=== PATIENT | female | born 1995 | race Caucasian/White ===

== ENCOUNTER 2023-01-19 07:42 | Observation (INO) ==
[2023-01-19] MEDS ORDERED: ONDANSETRON (PP) 4 MG TABLET SL ONE (08:05)
[2023-01-19] MEDS ORDERED: ACETAMINOPHEN 325 MG TABLET PO ONE (08:05)
[2023-01-19] MEDS ORDERED: FAMOTIDINE 20 MG TABLET PO ONE (08:05)
[2023-01-19] MEDS ORDERED: ONDANSETRON 4 MG ODT TABLET ONE (08:09)
[2023-01-19] MEDS ORDERED: ONDANSETRON 4 MG ODT TABLET SL ONE (08:13)
[2023-01-19 08:49] LABS: Basophils # (Auto) 0.05 K/mcL (0.00-0.30); Basophils % (Auto) 0.5 % (0.0-2.0); Eosinophils # (Auto) 0.12 K/mcL (0.00-0.70); Eosinophils % (Auto) 1.3 % (0.0-7.0); Hemoglobin 14.2 g/dL (11.2-15.7); Lymphocytes # (Auto) 2.66 K/mcL (1.50-4.80); Lymphocytes % (Auto) 28.1 % (15.5-49.0); Mean Cell Volume 89.6 fL (80.0-100.0); Mean Corpuscular HGB Conc 33.8 g/dL (31.0-36.0); Mean Platelet Volume 10.7 fL (8.8-12.5); Monocytes # (Auto) 0.63 K/mcL (0.10-0.90); Monocytes % (Auto) 6.7 % (1.0-12.0); Neutrophils % (Auto) 63.1 % (38.0-78.0); Platelet Count 258 K/mcL (140-440); RBC 4.69 M/mcL (3.59-5.38); Red Cell Distribution Width 12.5 % (11.5-14.5); WBC 9.5 K/mcL (4.5-11.0)
--- NOTE | 2023-01-19 09:02 | Emergency Department Note ---
HPI General Chief complaint: Flank Pain Stated complaint: Sharp [place] Pain Time Seen by Provider: 01/19/23 08:05 Source: patient Mode of arrival: ambulatory Limitations: no limitations History of Present Illness HPI Narrative: Narrative: 27-year-old female presents with right flank pain. States that it came on last night. Does radiate from her right upper quadrant to her right flank. With nausea no vomiting. Did not eat today. though states had blood greasy food last night. States normally loose stools and mild gross blood. No fevers chills. No urinary symptoms of dysuria urgency frequency hematuria. No fevers or chills. Does have a history of hypertension on propanolol. Non- smoker nondrinker no illicit IV drugs. No abdominal surgical history Related Data Home Medications Medication Instructions Recorded Confirmed etonogestrel 68 mg subdermal 1 implant subdermal ONCE 09/30/19 05/31/22 implant (Nexplanon) Previous Rx's Medication Instructions Recorded hydroxyzine HCl 25 mg tablet See Rx Instructions .Route 07/31/22 .COMPLEX #60 tabs pantoprazole 20 mg tablet,delayed 20 mg PO QDAY #90 tabs 10/02/22 release propranolol 60 mg capsule,24 60 mg PO QDAY #30 caps 11/27/22 hr,extended release Allergies Allergy/AdvReac Type Severity Reaction Status Date / Time No Known Drug Allergies Allergy Verified 05/31/22 14:58 Review of Systems ROS ROS Narrative: Narrative: 10 point review of system is otherwise negative except as mentioned in HPI. PFSH Narrative Patient History Narrative: Narrative: Medical/Surgical/Family History All Active Problems (Updated 01/19/23 @ 12:41 by Lorelei Love MD) Acute cholecystitis (Acute) Heartburn (Acute) Abdominal pain (Acute) Nausea (Acute) Viral URI with cough (Acute) Lightheadedness (Acute) Encounter for counseling regarding contraception (Chronic) Encounter for therapeutic drug monitoring (Chronic) Attention-deficit hyperactivity disorder, predominantly inattentive type (Chronic) ADHD (Chronic) Depression (Chronic) Nexplanon in place (Chronic ~06/25/14) Menstrual problem (Chronic) Suicide attempt (Chronic ~11/2012) Heart palpitations (Chronic) Anxiety (Chronic) Near syncope (Acute) Benign intracranial hypertension (Acute) Left flank pain (Acute) Steatosis of liver (Acute) Grief reaction (Acute) Generalized anxiety disorder with panic attacks (Acute) Encounter for removal and reinsertion of Nexplanon (Acute) Pseudotumor (Acute) Cellulitis (Acute) Autonomic dysfunction (Acute) Dizziness (Acute) Medical History ADHD Attention-deficit hyperactivity disorder, predominantly inattentive type Depression Encounter for counseling regarding contraception Encounter for therapeutic drug monitoring Menstrual problem Nexplanon in place (~06/25/14) Pseudotumor Steatosis of liver Suicide attempt (~11/2012) Surgical History No pertinent past surgical history Family History Mother No problems noted. Father High blood pressure Grandmother Thyroid disorder Grandfather Glaucoma Diabetes mellitus Brother No problems noted. Social History Smoking Status: Never smoker Alcohol Intake Frequency: a few times a week Substance Use: does not use Exam Narrative Narrative: Narrative: (Please note that portions of this note may have been completed with a voice recognition program. Efforts were made to edit the dictations but occasionally words are mis-transcribed) CONSTITUTIONAL: Well-nourished well-hydrated adult female obese 118 kg. Mother and father at bedside. Resting comfortably. Not in acute distress. Non toxic. Awake alert and oriented x3. Cooperative, follows commands. HEAD: Normocephalic. Atraumatic. EYES: EOMI ENT: No drooling stridor. speech clear fluent. NECK: Supple. Full range of motion. Trachea midline CARDIOVASCULAR: Adequate peripheral perfusion. PULMONARY: Nonlabored. . ABDOMINAL: Soft. Nondistended. Right upper quadrant tenderness. No rebound guarding or rigidity. No CVA tenderness positive bowel sounds. EXTREMITIES: No gross deformities. Moves all 4 extremities with good strength and tone. SKIN: Warm and dry. No rash. No petechiae. NEUROLOGY: Sensation is intact. No gross focal deficits. GCS of 15 General Limitations: no limitations Course Vital Signs Vital signs: Vital Signs Temperature 36.6 C 01/19/23 07:44 Pulse Rate 89 01/19/23 07:44 Respiratory Rate 17 01/19/23 07:44 Blood Pressure 137/101 01/19/23 07:44 Pulse Oximetry (%) 98 01/19/23 07:44 Oxygen Delivery Method Room Air 01/19/23 07:44 Temperature 36.6 C 01/19/23 07:44 Pulse Rate 62 01/19/23 12:31 Respiratory Rate 17 01/19/23 07:44 Blood Pressure 95/55 01/19/23 12:31 Pulse Oximetry (%) 98 01/19/23 12:31 Oxygen Delivery Method Room Air 01/19/23 07:44 MDM MDM Narrative Medical decision making narrative: Narrative: ddx gastritis ulcer cholelithiasis cholecystitis choledocholithiasis fatty liver stone obstructive septic UTI gas constipation etc. U preg negative. Udip LE, no blood. labs formal UA and RUQ US ordered. Zofran odt, pepcid and tylenol po ordered. Labs unremarkable. Normal LFTs bilirubin. Normal white count. Formal urine analysis was sent does show leukocyte esterase WBCs with bacteria with squamous cells concerning for contamination. Culture will be sent. Ultrasound per radiology call back does show acute cholecystitis. Patient was updated on results clinical impressions treatment plan. Questions have been answered at length. Agreeable to admission. NPO. IV Lavernen and Flagyl. Dr. Jara with spoken to. Will admit the patient. Lab Data 01/19/23 08:16 01/19/23 08:15 Labs: Lab Results 01/19/23 01/19/23 01/19/23 Range/Units 07:55 08:15 08:16 WBC 9.5 (4.5-11.0) K/mcL RBC 4.69 (3.59-5.38) M/mcL Hgb 14.2 (11.2-15.7) g/dL Hct 42.0 (34.1-44.9) % MCV 89.6 (80.0-100.0) fL MCH 30.3 (26.0-34.0) pg MCHC 33.8 (31.0-36.0) g/dL RDW 12.5 (11.5-14.5) % Plt Count 258 (140-440) K/mcL MPV 10.7 (8.8-12.5) fL Immature Gran % (Auto) 0.3 (0.0-0.5) % Neut % (Auto) 63.1 (38.0-78.0) % Lymph % (Auto) 28.1 (15.5-49.0) % Dane % (Auto) 6.7 (1.0-12.0) % Eos % (Auto) 1.3 (0.0-7.0) % Baso % (Auto) 0.5 (0.0-2.0) % Lymph # (Auto) 2.66 (1.50-4.80) K/mcL Dane # (Auto) 0.63 (0.10-0.90) K/mcL Eos # (Auto) 0.12 (0.00-0.70) K/mcL Baso # (Auto) 0.05 (0.00-0.30) K/mcL Immature Gran # 0.03 (0.00-0.05) K/mcl Absolute Neutrophils 5.98 (1.80-8.00) K/mcL Sodium 139 (133-145) mmol/L Potassium 4.2 (3.3-5.1) mmol/L Chloride 107 (96-108) mmol/L Carbon Dioxide 23 (22-30) mmol/L Anion Gap 9.0 (8.0-16.0) BUN 11 (6-20) mg/dL Creatinine 0.8 (0.6-1.1) mg/dL GFR Calculation 99 Glucose 103 (70-105) mg/dL Calcium 9.1 (8.6-10.4) mg/dL Total Bilirubin 0.2 (0.1-1.0) mg/dL AST 16 (<32) U/L ALT 21 (<40) U/L Alkaline Phosphatase 68 (39-117) U/L Total Protein 6.6 (5.9-8.4) gm/dL Albumin 3.8 (3.2-5.2) gm/dL Globulin 2.8 (2.2-3.7) gm/dL Albumin/Globulin Ratio 1.4 (1.0-2.3) Urine Color Yellow Urine Appearance Hazy A (Clear) Urine pH 5.0 (5.0-9.0) Ur Specific Oakes 1.021 (1.000-1.035) Urine Protein Negative (Negative) mg/dL Urine Glucose (UA) Negative (Negative) mg/dL Urine Ketones Negative (Negative) mg/dL Urine Occult Blood Negative (Negative) mg/dL Urine Nitrate Negative (Negative) Urine Bilirubin Negative (Negative) mg/dL Urine Urobilinogen Negative mg/dL Ur Leukocyte Esterase 75 A (Negative) /uL Urine RBC 1 (0-3) /hpf Urine WBC 5 H (0-4) /hpf Ur Squamous Epith Cells 2 (0-4) /hpf Calcium Oxalate Crystal Many A (None) /hpf Urine Bacteria Few A (0) /hpf Urine Mucus Few A (None) /hpf Ur Culture Indicated? Yes Discharge Plan Patient/Caregiver Discharge Instructions Pt seen by SUPERVISOR [employer]WORK/PA only: No Clinical Impression: Acute cholecystitis Patient Disposition: Xfer As Inpt ([facility]) Condition: Fair Follow up with: Doreen Mckeon ARNP [Primary Care Provider] - Prescriptions: No Action Nexplanon 68 mg implant 1 implant SUBDERMAL ONCE hydroxyzine HCl 25 mg tablet See Rx Instructions .ROUTE .COMPLEX Qty: 60 2RF Dose Instruction: TAKE 1 TO 2 TABLETS BY MOUTH EVERY 4 TO 6 HOURS NEEDED FOR ANXIETY Rx Instructions: TAKE 1 TO 2 TABLETS BY MOUTH EVERY 4 TO 6 HOURS NEEDED FOR ANXIETY pantoprazole 20 mg tablet,delayed release (DR/EC) 20 mg PO QDAY Qty: 90 1RF propranolol 60 mg capsule,extended release 24 hr 60 mg PO QDAY Qty: 30 3RF
[2023-01-19 09:08] LABS: ALT/SGPT 21 U/L (<40); AST/SGOT 16 U/L (<32); Albumin 3.8 gm/dL (3.2-5.2); Albumin/Globulin Ratio 1.4 (1.0-2.3); Alkaline Phosphatase 68 U/L (39-117); Bilirubin,Total 0.2 mg/dL (0.1-1.0); Blood Urea Nitrogen 11 mg/dL (6-20); Calcium 9.1 mg/dL (8.6-10.4); Carbon Dioxide 23 mmol/L (22-30); Chloride 107 mmol/L (96-108); Globulin 2.8 gm/dL (2.2-3.7); Glomerular Filtration Rate 99; Glucose 103 mg/dL (70-105)
[2023-01-19 09:49] LABS: Appearance,Urine HAZY (Clear); Bacteria,Urine FEW /hpf (0); Bilirubin,Urine Negative (Negative); Calcium Oxalate Crystals,Urine MANY /hpf; Color,Urine YELLOW; Culture Indicated,Urine Yes; Glucose,Urine (UA) Negative (Negative); Ketones,Urine Negative (Negative); Leukocyte Esterase,Urine 75 /uL (Negative); Mucus,Urine FEW /hpf; Nitrate,Urine Negative (Negative); Protein,Urine Negative (Negative); Specific Gravity,Urine 1.021 (1.000-1.035); Urine Blood Negative (Negative); Urine RBC 1 /hpf (0-3); Urine Squamous Epithelial Cell 2 /hpf (0-4); Urine WBC 5 /hpf (0-4); Urobilinogen,Urine Negative
[2023-01-19] MEDS ORDERED: cefTRIAXone 2 GM in DEXTROSE 5% IN WATER 50 ML IV ONE (10:34)
[2023-01-19] MEDS ORDERED: metroNIDAZOLE 500 MG/100 ML BAG IV ONE (10:34)
[2023-01-19] MEDS ORDERED: FAMOTIDINE/PF 20 MG/2 ML VIAL IV ONE (11:00)
[2023-01-19] MEDS ORDERED: diphenhydrAMINE 50 MG/ML VIAL IV ONE (11:00)
[2023-01-19] MEDS ORDERED: PROMETHAZINE 25 MG/ML VIAL IV PRN (13:25)
[2023-01-19] MEDS ORDERED: fentaNYL 100 MCG/2 ML VIAL IV PRN (13:25)
[2023-01-19] MEDS ORDERED: oxyCODONE IR 5 MG TABLET PO PRN (13:25)
[2023-01-19] MEDS ORDERED: LORazepam 1 MG TABLET PO PRN (13:25)
--- NOTE | 2023-01-19 13:36 | General Surg History&Physical ---
HPI History of Present Illness Patient information: Note initiated : 01/19/23 at 1:31 pm Service Date, if different from initiated Date: [] Patient: Donna Garcia 27 y/o F admitted on . Chief Complaint: [] Chief complaint: Cholelithiasis with cholecystitis History of present illness: Ms. Garcia is a 27 year old F admitted with gallbladder disease. She has greater than a 2-year history of intermittent epigastric and right upper quadrant pain and nausea. Last evening she had severe pain that started about midnight. She had nausea but no vomiting. Pain radiated through to her back. She finally came to the emergency room where evaluation reveals multiple gallstones with thickened gallbladder. She has acute cholecystitis and is admitted. She will be treated with antibiotics and will have surgery tomorrow. Review of Systems All systems: reviewed and no additional remarkable complaints except as stated Gastrointestinal Gastrointestinal: Present abdominal pain, cramping, dyspepsia and nausea Psychiatric Psychiatric: Present anxiety PFSH PFSH All Active Problems (Updated 01/19/23 @ 13:35 by Bertram Jara MD) Cholelithiasis with cholecystitis (Acute) Acute cholecystitis (Acute) Heartburn (Acute) Abdominal pain (Acute) Nausea (Acute) Viral URI with cough (Acute) Lightheadedness (Acute) Encounter for counseling regarding contraception (Chronic) Encounter for therapeutic drug monitoring (Chronic) Attention-deficit hyperactivity disorder, predominantly inattentive type (Chronic) ADHD (Chronic) Depression (Chronic) Nexplanon in place (Chronic ~06/25/14) Menstrual problem (Chronic) Suicide attempt (Chronic ~11/2012) Heart palpitations (Chronic) Anxiety (Chronic) Near syncope (Acute) Benign intracranial hypertension (Acute) Left flank pain (Acute) Steatosis of liver (Acute) Grief reaction (Acute) Generalized anxiety disorder with panic attacks (Acute) Encounter for removal and reinsertion of Nexplanon (Acute) Pseudotumor (Acute) Cellulitis (Acute) Autonomic dysfunction (Acute) Dizziness (Acute) Medical History ADHD Attention-deficit hyperactivity disorder, predominantly inattentive type Depression Encounter for counseling regarding contraception Encounter for therapeutic drug monitoring Menstrual problem Nexplanon in place (~06/25/14) Pseudotumor Steatosis of liver Suicide attempt (~11/2012) Surgical History No pertinent past surgical history Family History Mother No problems noted. Father High blood pressure Grandmother Thyroid disorder Grandfather Glaucoma Diabetes mellitus Brother No problems noted. Social History household members: alone housing: house marital status: education level: college occupational status: employed occupation: [id number] pets and animals: Yes pets and animals: dog(s) other: No Children smoking status: Never smoker alcohol intake frequency: a few times a week substance use type: does not use additional history: Pt's by suicide on 2019 MEDS/ALLERGIES Home Medications and Allergies Home Medications Medication Instructions Recorded Confirmed Type etonogestrel 68 mg subdermal 1 implant subdermal ONCE 09/30/19 05/31/22 History implant (Nexplanon) hydroxyzine HCl 25 mg tablet See Rx Instructions .Route 07/31/22 Rx .COMPLEX #60 tabs pantoprazole 20 mg tablet,delayed 20 mg PO QDAY #90 tabs 10/02/22 Rx release propranolol 60 mg capsule,24 60 mg PO QDAY #30 caps 11/27/22 Rx hr,extended release Allergies Allergy/AdvReac Type Severity Reaction Status Date / Time No Known Drug Allergies Allergy Verified 05/31/22 14:58 Physical Examination Vital Signs Vital signs: Temp Pulse Resp BP Pulse Ox O2 Del Method 97.9 F 70 17 109/68 99 Room Air 01/19/23 07:44 01/19/23 13:00 01/19/23 07:44 01/19/23 13:00 01/19/23 13:00 01/19/23 07:44 General physical appearance General physical exam: well developed, well nourished and no distress Eyes Eye exam: PERRL and normal ocular movement ENT ENT exam: normal pinna, normal nares, normal mucosa, no hearing loss and no congestion Head Head exam IM: Present atraumatic and normocephalic Neck Neck exam: no masses, no bruits, trachea midline, no lymphadenopathy and no venous distension Cardiovascular Cardiovascular exam IM: Present normal rate and rhythm Respiratory Respiratory exam: normal expansion, normal respiratory effort, clear to percussion and clear to auscultation Abdomen Abdomen: Present soft, tender (Right upper quadrant tenderness with guarding) and bowel sounds Hernia: Present none Genitourinary Genitourinary (Female): Present normal external genitalia Rectum Rectum: Present normal sphincter tone, no hemorrhoids, no tenderness, no masses and no bleeding Integumentary Integumentary: Present no rash, no growths and no abnormal pigmentation Neurologic Neurologic: Present normal coordination and normal sensation Musculoskeletal Musculoskeletal: Present normal gait and normal posture Psychiatric Psychiatric: Present oriented to time, oriented to person, oriented to place, speech is normal and memory intact Results Labs 01/19/23 08:16 01/19/23 08:15 Labs: Abnormal lab results 01/19/23 Range/Units 07:55 Urine Appearance Hazy A (Clear) Ur Leukocyte Esterase 75 A (Negative) /uL Urine WBC 5 H (0-4) /hpf Calcium Oxalate Crystal Many A (None) /hpf Urine Bacteria Few A (0) /hpf Urine Mucus Few A (None) /hpf Diabetes panel 01/19/23 Range/Units 08:15 Sodium 139 (133-145) mmol/L Potassium 4.2 (3.3-5.1) mmol/L Chloride 107 (96-108) mmol/L Carbon Dioxide 23 (22-30) mmol/L BUN 11 (6-20) mg/dL Creatinine 0.8 (0.6-1.1) mg/dL Glucose 103 (70-105) mg/dL Calcium 9.1 (8.6-10.4) mg/dL AST 16 (<32) U/L ALT 21 (<40) U/L Alkaline Phosphatase 68 (39-117) U/L Total Protein 6.6 (5.9-8.4) gm/dL Albumin 3.8 (3.2-5.2) gm/dL Calcium panel 01/19/23 Range/Units 08:15 Calcium 9.1 (8.6-10.4) mg/dL Albumin 3.8 (3.2-5.2) gm/dL Pituitary panel 01/19/23 Range/Units 08:15 Sodium 139 (133-145) mmol/L Potassium 4.2 (3.3-5.1) mmol/L Chloride 107 (96-108) mmol/L Carbon Dioxide 23 (22-30) mmol/L BUN 11 (6-20) mg/dL Creatinine 0.8 (0.6-1.1) mg/dL Glucose 103 (70-105) mg/dL Calcium 9.1 (8.6-10.4) mg/dL Adrenal panel 01/19/23 Range/Units 08:15 Sodium 139 (133-145) mmol/L Potassium 4.2 (3.3-5.1) mmol/L Chloride 107 (96-108) mmol/L Carbon Dioxide 23 (22-30) mmol/L BUN 11 (6-20) mg/dL Creatinine 0.8 (0.6-1.1) mg/dL Glucose 103 (70-105) mg/dL Calcium 9.1 (8.6-10.4) mg/dL Total Bilirubin 0.2 (0.1-1.0) mg/dL AST 16 (<32) U/L ALT 21 (<40) U/L Alkaline Phosphatase 68 (39-117) U/L Total Protein 6.6 (5.9-8.4) gm/dL Albumin 3.8 (3.2-5.2) gm/dL All other labs normal. A/P Assessment and plan (1) Cholelithiasis with cholecystitis: Status: Acute (2) ADHD: Status: Chronic (3) Depression: Status: Chronic Qualifiers: Depression Type: major depressive disorder Major depression recurrence: unspecified whether recurrent Active/Remission status: currently active Major depression episode severity: severe Psychotic features: without psychotic features Qualified Code(s): F32.2 - Major depressive disorder, single episode, severe without psychotic features (4) Pseudotumor: Status: Acute Plan Cefepime 1 g IV every 8 hours N.p.o. after midnight Consent to be obtained for laparoscopic cholecystectomy tomorrow Time Spent With Patient Time: Total time spent is greater than 50% in coordination of care (as documented) at patient's floor/unit and/or counseling patient:
[2023-01-19 14:00] LABS: Prothrombin Time 13.4 sec (11.9-14.5)
--- NOTE | 2023-01-19 14:20 | Ultrasound Report ---
CLINICAL INFORMATION: ruq pain nausea COMPARISON: None. FINDINGS: Gallbladder is mildly distended and there is mild wall thickening-4 mm. There are two stones in the gallbladder 1.5 and 1.4 cm respectively. Liver is normal in size with diffuse hyperechogenicity compatible with fatty change. No focal hepatic lesion. The visualized pancreas is normal. No free fluid. IMPRESSION: Cholecystitis Fatty change in the liver Interpreted and Authenticated by: Ramesh Hameed 01/19/23
[2023-01-19] MEDS: 0.9 % SODIUM CHLORIDE 1,000 ML IV SCH ×2 (17:14→20:53)
[2023-01-19] MEDS: ACETAMINOPHEN 1,000 MG/100 ML BAG IV SCH ×2 (17:15→19:54)
[2023-01-19] MEDS: CEFEPIME 1 GM VIAL IV SCH ×2 (17:15→20:53)
[2023-01-20] MEDS: ACETAMINOPHEN 1,000 MG/100 ML BAG IV SCH ×4 (00:50→23:43)
[2023-01-20] MEDS: ONDANSETRON 4 MG/2 ML VIAL IV PRN ×2 (02:17→13:05)
[2023-01-20] MEDS: 0.9 % SODIUM CHLORIDE 1,000 ML IV SCH ×5 (02:22→21:13)
[2023-01-20] MEDS: CEFEPIME 1 GM VIAL IV SCH ×3 (05:52→21:16)
[2023-01-20 06:47] LABS: Basophils # (Auto) 0.03 K/mcL (0.00-0.30); Basophils % (Auto) 0.5 % (0.0-2.0); Eosinophils # (Auto) 0.08 K/mcL (0.00-0.70); Eosinophils % (Auto) 1.2 % (0.0-7.0); Hematocrit 41.9 % (34.1-44.9); Hemoglobin 13.6 g/dL (11.2-15.7); Lymphocytes # (Auto) 2.75 K/mcL (1.50-4.80); Mean Cell Volume 91.3 fL (80.0-100.0); Mean Corpuscular HGB Conc 32.5 g/dL (31.0-36.0); Mean Platelet Volume 10.9 fL (8.8-12.5); Monocytes # (Auto) 0.43 K/mcL (0.10-0.90); Monocytes % (Auto) 6.6 % (1.0-12.0); Neutrophils % (Auto) 49.4 % (38.0-78.0); Platelet Count 232 K/mcL (140-440); RBC 4.59 M/mcL (3.59-5.38); Red Cell Distribution Width 12.4 % (11.5-14.5); WBC 6.6 K/mcL (4.5-11.0)
[2023-01-20 07:10] LABS: ALT/SGPT 22 U/L (<40); AST/SGOT 17 U/L (<32); Albumin 3.8 gm/dL (3.2-5.2); Albumin/Globulin Ratio 1.6 (1.0-2.3); Alkaline Phosphatase 64 U/L (39-117); Bilirubin,Direct < 0.2 mg/dL (0-0.3); Bilirubin,Total 0.4 mg/dL (0.1-1.0); Blood Urea Nitrogen 8 mg/dL (6-20); Calcium 8.9 mg/dL (8.6-10.4); Carbon Dioxide 21 mmol/L (22-30); Chloride 106 mmol/L (96-108); Globulin 2.4 gm/dL (2.2-3.7); Glomerular Filtration Rate 99; Glucose 79 mg/dL (70-105); Lactate Dehydrogenase 138 U/L (135-225); Phosphorous 3.7 mg/dL (2.5-4.5); Triglycerides 112 mg/dL (<150); Uric Acid 5.1 mg/dL (2.5-8.0)
[2023-01-20] MEDS ORDERED: IPRATROPIUM/ALBUTEROL 3 ML AMPUL.NEB NEB PRN ×2 (09:00→11:59)
[2023-01-20] MEDS ORDERED: SCOPOLAMINE 1 PATCH PATCH TOPICAL PRN (09:00)
[2023-01-20] MEDS ORDERED: ONDANSETRON 4 MG/2 ML VIAL ONE (10:50)
[2023-01-20] MEDS ORDERED: DEXAMETHASONE 10 MG/ML VIAL ONE (10:50)
[2023-01-20] MEDS ORDERED: ROCURONIUM 10 MG/ML ML IV ONE (10:50)
[2023-01-20] MEDS ORDERED: NEOSTIGMINE 1 MG/ML ML ONE (10:50)
[2023-01-20] MEDS ORDERED: KETAMINE 50 MG/ML Syringe (ANEST) IV ONE (10:50)
[2023-01-20] MEDS ORDERED: fentaNYL 100 MCG/2 ML VIAL IV ONE (10:50)
[2023-01-20] MEDS ORDERED: PROPOFOL 200 MG/20 ML VIAL IV ONE (10:50)
[2023-01-20] MEDS ORDERED: KETOROLAC 30 MG/ML VIAL ONE (10:50)
[2023-01-20] MEDS ORDERED: MIDAZOLAM 2 MG/2 ML VIAL ONE (10:50)
[2023-01-20] MEDS ORDERED: GLYCOPYRROLATE 0.2 MG/ML VIAL IV ONE (10:50)
--- NOTE | 2023-01-20 11:42 | Brief Operative Note ---
Brief Operative Note Date of procedure: 01/20/23 Pre-op diagnosis: cholecystitis with cholelithiasis Post-op diagnosis: other (cholecystitis with cholelithiasis) Procedure: LAPAROSCOPIC CHOLECYSTECTOMY Grafts/Implants: No Anesthesia: GETA Findings: ACUTE INFLAMMATION OF GALLBLADDER WITH STONES Complications: none Surgeon: Bertram Jara Estimated blood loss (cc): 20 Specimens Removed/Pathology: other (GALLBLADDER ) Condition: stable Disposition: PACU
[2023-01-20] MEDS ORDERED: ONDANSETRON 4 MG/2 ML VIAL IV PRN (11:59)
[2023-01-20] MEDS ORDERED: ACETAMINOPHEN 1,000 MG/100 ML BAG IV ONE (11:59)
[2023-01-20] MEDS ORDERED: METOPROLOL TARTRATE 5 MG/5 ML VIAL IV PRN (11:59)
[2023-01-20] MEDS ORDERED: NALOXONE HCL 0.4 MG/ML VIAL IV PRN (11:59)
[2023-01-20] MEDS ORDERED: METOCLOPRAMIDE 10 MG/2 ML VIAL IV PRN (11:59)
[2023-01-20] MEDS ORDERED: FLUMAZENIL 0.1 MG/ML ML IV PRN (11:59)
[2023-01-20] MEDS ORDERED: HYDROmorphone 0.5 MG/0.5 ML SYRINGE IV PRN (11:59)
[2023-01-20] MEDS ORDERED: MEPERIDINE 25 MG/ML VIAL IV PRN (11:59)
[2023-01-20] MEDS ORDERED: PROMETHAZINE 25 MG/ML VIAL IV PRN (11:59)
[2023-01-20] MEDS ORDERED: METHOCARBAMOL 1,000 MG/10 ML VIAL IV PRN (11:59)
[2023-01-20] MEDS ORDERED: LABETALOL 5 MG/ML ML IV PRN (11:59)
[2023-01-20] MEDS: fentaNYL 100 MCG/2 ML VIAL IV PRN ×4 (12:07→12:22)
[2023-01-20] MEDS ORDERED: hydrOXYzine 25 MG TABLET PO PRN (12:35)
[2023-01-20] MEDS ORDERED: ACETAMINOPHEN 1,000 MG/100 ML BAG IV SCH (12:35)
[2023-01-21] MEDS: 0.9 % SODIUM CHLORIDE 1,000 ML IV SCH ×2 (04:33→12:08)
[2023-01-21] MEDS: ACETAMINOPHEN 1,000 MG/100 ML BAG IV SCH ×2 (05:00→12:08)
[2023-01-21] MEDS: CEFEPIME 1 GM VIAL IV SCH ×2 (05:00→13:40)
[2023-01-21 06:41] LABS: Basophils # (Auto) 0.01 K/mcL (0.00-0.30); Basophils % (Auto) 0.1 % (0.0-2.0); Eosinophils # (Auto) 0 K/mcL (0.00-0.70); Eosinophils % (Auto) 0 % (0.0-7.0); Hematocrit 41.4 % (34.1-44.9); Hemoglobin 13.8 g/dL (11.2-15.7); Lymphocytes # (Auto) 1.19 K/mcL (1.50-4.80); Lymphocytes % (Auto) 10.9 % (15.5-49.0); Mean Corpuscular HGB Conc 33.3 g/dL (31.0-36.0); Mean Platelet Volume 11.1 fL (8.8-12.5); Monocytes # (Auto) 0.46 K/mcL (0.10-0.90); Monocytes % (Auto) 4.2 % (1.0-12.0); Neutrophils % (Auto) 84.5 % (38.0-78.0); Platelet Count 273 K/mcL (140-440); WBC 10.9 K/mcL (4.5-11.0)
[2023-01-21 07:22] LABS: ALT/SGPT 38 U/L (<40); AST/SGOT 24 U/L (<32); Albumin 3.7 gm/dL (3.2-5.2); Albumin/Globulin Ratio 1.4 (1.0-2.3); Alkaline Phosphatase 65 U/L (39-117); Bilirubin,Direct < 0.2 mg/dL (0-0.3); Bilirubin,Total 0.3 mg/dL (0.1-1.0); Blood Urea Nitrogen 5 mg/dL (6-20); Calcium 8.7 mg/dL (8.6-10.4); Carbon Dioxide 21 mmol/L (22-30); Chloride 103 mmol/L (96-108); Globulin 2.6 gm/dL (2.2-3.7); Glomerular Filtration Rate 116; Glucose 124 mg/dL (70-105); Lactate Dehydrogenase 210 U/L (135-225); Phosphorous 2.4 mg/dL (2.5-4.5); Triglycerides 104 mg/dL (<150); Uric Acid 4.2 mg/dL (2.5-8.0)
[2023-01-21] MEDS ORDERED: PROPRANOLOL 60 MG CAP.XL.24H PO SCH (09:00)
--- NOTE | 2023-01-21 14:30 | Discharge Summary ---
Discharge Provider Provider IMPORTANT FOLLOW-UP INFORMATION FOR PCP: Patient information: Note initiated : 01/21/23 at 2:25 pm Service Date, if different from initiated Date: [] Patient: Donan Garcia 27 y/o F admitted on 01/19/23. Chief Complaint: [] Date of admission: 01/19/23 14:30 Discharge date: 01/21/23 Primary care physician: JAGDISH Hanley Admitting clinician: Bertram Jara Attending physician on admission: Bertram Jara Consults: 01/19/23 Consult to Physician [CONS] Stat Comment: Consulting Provider: Bertram Jara Reason For Exam: Physician to Consult Attending physician on discharge: Bertram Jara Discharging clinician: Bertram Jara COURSE Hospital Course Hospital course: 27-year-old female with prior history of biliary colic who presents with a 2-day history of epigastric and right upper quadrant pain with nausea. She was seen in the emergency room for evaluation. Ultrasound revealed gallstones with thickening of the gallbladder wall. She was admitted and started on antibiotics. She had laparoscopic cholecystectomy on yesterday with findings of acute edema of the gallbladder with thickening of the wall. She had 2 large stones. She has done well in the perioperative. And is now asymptomatic. LFTs are normal. White count is 10.9. Patient is clinically stable for discharge. Discharge diagnosis: Cholelithiasis with cholecystitis Secondary discharge diagnosis: ADHD Depression with anxiety Reason for admission: Cholecystitis with cholelithiasis Procedures: Laparoscopic cholecystectomy 20 January 2023 Pertinent studies/significant findings: Upper abdominal ultrasound Complications: None Time Spent with Patient Time attestation: Total time spent providing and/or coordinating discharge services: Time spent: Less than 30 minutes Physical Examination Vital Signs Vital signs: Temp Pulse Resp BP Pulse Ox O2 Del Method O2 Flow Rate 98.8 F 91 H 18 122/62 97 Room Air 6 01/21/23 12:00 01/21/23 12:00 01/21/23 12:01/21/23 12:01/21/23 12:00 01/21/23 12:01/20/23 11:55 General physical appearance General physical exam: well developed, well nourished and no distress Eyes Eye exam: PERRL and normal ocular movement ENT ENT exam: normal pinna, normal nares, normal mucosa, no hearing loss and no congestion Head Head exam IM: Present atraumatic and normocephalic Neck Neck exam: no masses, no bruits, trachea midline, no lymphadenopathy and no venous distension Cardiovascular Cardiovascular exam IM: Present normal rate and rhythm Respiratory Respiratory exam: normal expansion, normal respiratory effort, clear to percussion and clear to auscultation Abdomen Abdomen: Present soft, tender ( moderate tenderness around port sites) and bowel sounds Hernia: Present none Genitourinary Genitourinary (Female): Present normal external genitalia Rectum Rectum: Present normal sphincter tone, no hemorrhoids, no tenderness, no masses and no bleeding Integumentary Integumentary: Present no rash, no growths and no abnormal pigmentation Neurologic Neurologic: Present normal coordination and normal sensation Musculoskeletal Musculoskeletal: Present normal gait and normal posture Psychiatric Psychiatric: Present oriented to time, oriented to person, oriented to place, speech is normal and memory intact Discharge Plan Patient/Caregiver Discharge Instructions Activity: increase activity as tolerated Diet: Regular Diet and Low Fat Prescriptions: Continued Nexplanon 68 mg implant 1 implant SUBDERMAL ONCE pantoprazole 20 mg tablet,delayed release (DR/EC) 20 mg PO QDAY Qty: 90 1RF propranolol 60 mg capsule,extended release 24 hr 60 mg PO QDAY Qty: 30 3RF hydroxyzine HCl 25 mg tablet 25 mg PO Q8 PRN (Reason: Anxiety) Prescription drug monitoring program results: PDMP not reviewed Follow Up Plan Follow up with: Doreen Mckeon ARNP [Primary Care Provider] - Bertram Jara MD [Physician] - (Follow-up with me in the office in 2 weeks) Patient Disposition: Home, Self-Care Prognosis: Good Rehab Potential: Good I certify that the patient requires SNF services: No Overall status at discharge: patient is progressing back to baseline Discharge Orders: Discharge Order (Routine); Ordered 01/21/23 Ordered By: Bertram Jara Pending Pending Pending: Resuscitation Status Full Code Diet Regular Diet Start SatJan 21 0800 Food Dislikes lactose intolerant Cefepime HCl (Cefepime 1 Gm Vial) 1 gm IV Q8H [facility]; Protocol Last Admin: 01/21/23 13:40 Dose: 1 gm Documented By: Admin: 01/21/23 05:00 Dose: 1 gm Documented By: Admin: 01/20/23 21:16 Dose: 1 gm Documented By: Admin: 01/20/23 13:35 Dose: 1 gm Documented By: Admin: 01/20/23 05:52 Dose: 1 gm Documented By: Admin: 01/19/23 20:53 Dose: 1 gm Documented By: Admin: 01/19/23 17:15 Dose: 1 gm Documented By: JULIENNE Sodium Chloride (Sodium Chloride 0.9%) 1,000 mls @ 150 mls/hr IV .Q6H40M [facility] Last Admin: 01/21/23 12:08 Dose: 150 mls/hr Documented By: Infusion: 01/21/23 11:14 Dose: 150 mls/hr Documented By: Admin: 01/21/23 04:33 Dose: 150 mls/hr Documented By: Infusion: 01/21/23 03:54 Dose: 150 mls/hr Documented By: Admin: 01/20/23 21:13 Dose: 150 mls/hr Documented By: Infusion: 01/20/23 20:16 Dose: 150 mls/hr Documented By: Admin: 01/20/23 17:54 Dose: Not Given Documented By: Admin: 01/20/23 13:35 Dose: 150 mls/hr Documented By: Admin: 01/20/23 10:18 Dose: Not Given Documented By: Infusion: 01/20/23 09:49 Dose: 0 mls/hr Documented By: Admin: 01/20/23 02:22 Dose: 150 mls/hr Documented By: Infusion: 01/19/23 23:55 Dose: 150 mls/hr Documented By: Admin: 01/19/23 20:53 Dose: Not Given Documented By: Admin: 01/19/23 17:14 Dose: 150 mls/hr Documented By: JULIENNE Acetaminophen (Ofirmev) 1,000 mg in 100 mls @ 200 mls/hr IV Q6H [facility] Last Admin: 01/21/23 12:08 Dose: 200 mls/hr Documented By: Infusion: 01/21/23 05:30 Dose: 200 mls/hr Documented By: Admin: 01/21/23 05:00 Dose: 200 mls/hr Documented By: Infusion: 01/21/23 00:45 Dose: 0 mls/hr Documented By: Admin: 01/20/23 23:43 Dose: 100 mls/hr Documented By: Infusion: 01/20/23 18:30 Dose: 0 mls/hr Documented By: Admin: 01/20/23 17:54 Dose: 200 mls/hr Documented By: NATALIE Ondansetron HCl (Ondansetron 4 Mg/2 Ml Vial) 4 mg IV Q4HP PRN; Protocol PRN Reason: Nausea/Vomiting Last Admin: 01/20/23 13:05 Dose: 4 mg Documented By: Admin: 01/20/23 02:17 Dose: 4 mg Documented By: CRISTINA Propranolol HCl (Propranolol 60 Mg Cap.Xl.24h) 60 mg PO QDAY KARSTEN Last Admin: 01/21/23 09:00 Dose: 60 mg Documented By: NATALIE Shift Summary 01/20/23 04:09 Shift Summary by Alejandrina Phelps Patient A/Ox4, pleasant and cooperative. Independent in the room. Received PRN zofran for nausea x1 and has KARSTEN ofirmev for pain which has been at a tolerable level. Receiving KARSTEN maxipime and has NS @150. Voiding per BR. VSS on RA. Going to have surgery at 1000, consent has been signed, patient denied any questions and verbalizes understanding of the surgery. Educated on IS and post op interventions. Will D/C home when medically cleared. Initialized on 01/20/23 04:09 - END OF NOTE
--- NOTE | 2023-01-23 12:59 | Operative Note ---
DATE OF OPERATION: 01/20/2023 PREOPERATIVE DIAGNOSIS: Cholecystitis with cholelithiasis. POSTOPERATIVE DIAGNOSES: Cholecystitis with cholelithiasis. PROCEDURE: Laparoscopic cholecystectomy. SURGEON: Bertarm Jara M.D. DESCRIPTION OF PROCEDURE: Under general anesthesia, the patient's abdomen was prepped and draped in a sterile field. Supraumbilical midline incision was made. Veress needle was inserted uneventfully. Abdomen was insufflated with 2.5 liters of CO2. A 12 mm port was placed. Laparoscope was placed. An acutely inflamed gallbladder with multiple stones was encountered. Under videoscopic guidance, a 12 mm port and two 5 mm ports were placed in the right subcostal region. Gallbladder was grasped and positioned. Infundibulum was identified and cystic duct. Cystic artery branches were identified. Cystic duct was transected using Endo TAMMY stapler. Cystic artery was followed to the gallbladder, clipped with five clips and divided. The gallbladder was then from the infrahepatic bed using electrocautery. There was no significant bleeding. There was no bile leak. Gallbladder was placed in an Endopouch and retrieved. Irrigation was carried out. Hemostasis in the bed was clinically dry. CO2 was allowed to escape from the abdomen and the ports were removed. The patient tolerated the procedure well. The fascia at the umbilicus was closed with 0 Vicryl. Skin incisions were closed with wally. Tegaderm dressings were placed. The patient tolerated the procedure well. She was awakened from anesthesia uneventfully, transferred to a bed, and taken to the postanesthetic care unit in satisfactory condition. LCS:urmila Job ID: [id number] Doc ID: [id number] Bertram Jara M.D.
== END 2023-01-21 17:57 | disposition home or self-care (01) ==
LOC: MEDSUR 07:42 → ED 07:42 → MEDSUR 14:20
PROVIDERS: ADMIT Family Medicine Adult Medicine; ATTEND Family Medicine Adult Medicine